=== PATIENT | male | born 1940 | race Caucasian/White ===

== ENCOUNTER 2017-12-25 12:19 | Day surgery (SDC) | payer OTHER ==
[2017-12-24 08:53] VITALS: BMI 25.8
[2017-12-25] MEDS ORDERED: PROPOFOL 20 ML ONE (13:29)
[2017-12-25 14:49] VITALS: BP 110/75; PULSE 58; TEMP 98
--- NOTE | 2017-12-27 15:55 | PATH ---
Surgical Pathology Report Patient Name: MARY JORGE [facility]. Rec. #: [id number] /Age/Gender: 1940 (Age: 77) / M Account: [id number] [facility] Taken: 12/25/2017 Received: 12/25/2017 Reported: 12/27/2017 Physicians: Aurelia Hsu M.D. Specimen(s) Received TRANSVERSE COLON Clinical History Rule out colon cancer Postoperative diagnosis: Diverticulosis, polyp Final Diagnosis TRANSVERSE COLON, POLYP, BIOPSY: HYPERPLASTIC POLYP. Electronically Signed Katy Higuera M.D. Gross Description Received in formalin, labeled "polyp transverse colon" is a kim, irregular portion of soft tissue measuring 0.3 cm. in greatest dimension. The specimen is submitted in toto in one cassette. 12/26/201712/26/2017
== END 2017-12-25 14:51 | disposition home or self-care (01) ==
LOC: FASU-ENDO 12:19
PROVIDERS: ATTEND Internal Medicine Gastroenterology
PROC: 0DBL8ZX Excision of Transverse Colon, Via Natural or Artificial Opening Endoscopic, Diagnostic (ICD-10-PCS; principal; 2017-12-25 13:35)
DX: K92.2 Gastrointestinal hemorrhage, unspecified (principal); K63.5 Polyp of colon; K64.4 Residual hemorrhoidal skin tags; K64.2 Third degree hemorrhoids; K57.30 Diverticulosis of large intestine without perforation or abscess without bleeding
CPT/HCPCS: 88305-TC